=== PATIENT | male | born 1985 | race African-American/Black ===

== ENCOUNTER 2024-04-30 08:20 | Emergency (ER) | payer SELFPAY ==
[~2024-04-30] VITALS: Ht 180.3 cm; Wt 70.5 kg
[2024-04-30 08:31] VITALS: BP 127/74
[2024-04-30] MEDS ORDERED: LIDOcaine HCl 1% (Local Anesth.) 20 ML VIAL STI STA (08:34)
[2024-04-30] MEDS ORDERED: POVIDONE IODINE 0.5 OZ/BTL TOP ONE (08:35)
[2024-04-30] MEDS ORDERED: BACTRIM DS1 TAB PO ×2 (08:39→08:50)
[2024-04-30 08:45] VITALS: BP 127/77
[2024-04-30] MEDS ORDERED: CEPHALEXIN500 M1 PO (08:50)
[2024-04-30 09:00] VITALS: BP 116/67
[2024-04-30] MEDS ORDERED: IBUPROFEN600 MG PO (09:11)
[2024-04-30] MEDS ORDERED: IBUPROFEN 600 MG/TAB PO ONE (09:15)
[2024-04-30 09:16] VITALS: BP 121/72
[2024-04-30 09:26] VITALS: BP 121/72
== END 2024-04-30 09:36 | disposition home or self-care (01) | DRG 603 ==
LOC: ED 08:20
PROC: 0H9KXZZ Drainage of Right Lower Leg Skin, External Approach (ICD-10-PCS; principal; 2024-04-30)
PROC: 0H9HXZZ Drainage of Right Upper Leg Skin, External Approach (ICD-10-PCS; 2024-04-30)
DX: L02.415 Cutaneous abscess of right lower limb (principal)

== ENCOUNTER 2024-05-26 07:37 | Emergency (ER) | payer SELFPAY ==
[~2024-05-26] VITALS: Ht 180.3 cm; Wt 77.1 kg
[~2024-05-26 07:37] MED LIST: BACTRIM DS1 TAB PO; CEPHALEXIN500 M1 PO; IBUPROFEN600 MG PO
[2024-05-26 07:49] VITALS: BP 136/74
[2024-05-26] MEDS ORDERED: LIDOcaine HCl 1% (Local Anesth.) 20 ML VIAL STI STA (07:59)
[2024-05-26] MEDS ORDERED: POVIDONE IODINE 0.5 OZ/BTL TOP STA (07:59)
[2024-05-26 08:00] VITALS: BP 123/90
[2024-05-26 08:15] VITALS: BP 140/68
[2024-05-26 08:24] VITALS: BP 140/68
[2024-05-26] MEDS ORDERED: NAPROXEN500 MG PO (08:28)
== END 2024-05-26 08:33 | disposition home or self-care (01) | DRG 603 ==
LOC: ED 07:37
DX: L02.214 Cutaneous abscess of groin (principal)

== ENCOUNTER 2024-07-05 21:21 | Emergency (ER) | payer SELFPAY ==
[~2024-07-05] VITALS: Ht 180.3 cm; Wt 71.8 kg
[~2024-07-05 21:21] MED LIST changes: +NAPROXEN500 MG PO
[2024-07-05 21:28] VITALS: BP 130/75
[2024-07-05] MEDS ORDERED: IRON325 M1 PO (21:34)
[2024-07-05 22:29] VITALS: BP 106/65
== END 2024-07-05 22:26 | disposition home or self-care (01) | DRG 316 ==
LOC: ED 21:21
DX: R09.A2 Foreign body sensation, throat (principal)